=== PATIENT | male | born 2000 | race Caucasian/White ===

== ENCOUNTER 2020-06-16 16:14 | Emergency (ER) | payer BC ==
[~2020-06-16] VITALS: Ht 188 cm; Wt 81.7 kg
[~2020-06-16 16:14] MED LIST: VICODIN 5-3001 EACH PO
== END 2020-06-16 19:43 | disposition home or self-care (01) ==
LOC: ER 16:14
DX: H57.04 Mydriasis (principal)
CPT/HCPCS: 70450; 99284-25